=== PATIENT | female | born 1995 | race African-American/Black ===

== ENCOUNTER → 2020-09-09 13:56 | Outpatient (CLI) | payer OTHER, SELFPAY ==
--- NOTE | ~2020-09-09 | CT_ITS ---
EXAMINATION: CT abdomen pelvis wo con DATE: 09/09/2020 14:18 INDICATION: Flank pain and groin pain. Unspecified abdominal pain. Recent urinary tract infection. TECHNIQUE: Computed tomography (CT) of the abdomen was performed without intravenous contrast. Automa deidre exposure control and iterative reconstruction technique were employed. Exam dose: 1097.73 mGy-cm total exam DLP. COMPARISON: None. FINDINGS: Mild focal middle lobe atelectasis. Minimal discoid atelectasis or scarring in the medial r ight lung base. Normal heart size. No pericardial or pleural effusion. The liver, gallbladder, spleen, pancreas, and adrenal glands and kidneys appear normal. No bile duct or pancreatic duct dilatation. No urinary tract calculus or hydroureteronephrosis. Urinary bladder, uterus and adnexal areas are unr emarkable. Normal caliber of the abdominal aorta. No intraperitoneal or retroperitoneal or pelvic mass lesion or adenopathy or ascites. Normal appendix. No bowel obstruction, bowel wall thickening, pneumatosis or intraperitoneal free air . Small fat-containing umbilical hernia. Included skeletal structures are unremarkable. IMPRESSION: No significant abnormality Reviewed, dictated and finalized at [facility]. Reviewed, dictated and finalized at [facility]. IMPRESSION: No significant abnormality
== END ==
PROVIDERS: PCP Family Medicine; Visit Provider Family Medicine
DX: R10.9 Unspecified abdominal pain (principal)
CPT/HCPCS: 74176

== ENCOUNTER → 2021-06-12 10:13 | Outpatient (CLI) | payer OTHER, SELFPAY ==
--- NOTE | ~2021-06-12 | US_ITS ---
EXAMINATION: US pelvic complete w TV DATE: 06/12/2021 10:59 INDICATION: Pelvic and perineal pain TECHNIQUE: Multiple transabdominal and endovaginal sonographic images of the pelvis were obtained. COMPARISON: None. FINDINGS: The uterus measures 9.5 x 4.4 x 5.0 cm. There is a 1.8 x 1.5 cm intramural hypoechoic area anteriorly in the uterine fundus and a similar appearing 1.4 x 1.5 cm area posteriorly in the uterine fundus. The endometrial complex measures 6 mm. The right ovary measures 2.8 x 2.8 x 4.2 cm. The left ovary measures 3.3 x 1.9 x 3.0 cm. There is normal vascular flow in the ovaries. There is no free fl uid in the pelvis. IMPRESSION: 1. No sonographic correlate for the patient's symptoms. 2. Hypoechoic areas of the uterine fundus which may reflect intramural fibroids or possibly adenomyos is. Reviewed, dictated and finalized at [facility]. IMPRESSION: 1. No sonographic correlate for the patient's symptoms. 2. Hypoechoic areas of the uterine fundus which may reflect intramural fibroids or possibly adenomyosis.
== END ==
PROVIDERS: PCP Nurse Practitioner Obstetrics & Gynecology; Visit Provider Family Medicine
DX: R10.2 Pelvic and perineal pain (principal)
CPT/HCPCS: 76830; 76856

== ENCOUNTER 2021-12-23 11:01 | Outpatient (CLI) | payer OTHER, SELFPAY ==
[2021-12-24 08:41] LABS: Kit Draw Collected
== END 2021-12-23 11:02 | disposition home or self-care (01) ==
LOC: ANHGOSHLAB 11:03
PROVIDERS: PCP Family Medicine; Visit Provider Family Medicine
DX: Z00.00 Encounter for general adult medical examination without abnormal findings (principal); I10 Essential (primary) hypertension; E66.9 Obesity, unspecified
CPT/HCPCS: 36415

== ENCOUNTER 2022-02-27 16:56 | Emergency (ER) | payer OTHER, SELFPAY ==
[2022-02-27 17:06] VITALS: BP 124/82; PULSE 98; RESP 20; TEMP 36.7; O2SAT 100
--- NOTE | 2022-02-27 17:12 | ED.NAVMDI ---
HPI - Nausea/Vomiting/Diarrhea General Chief complaint: Nausea/Vomiting/Diarrhea Stated complaint: VOMITING/DIARRHEA/CHILLS/CRAMPING/BELCHING Time Seen by Provider: 02/27/22 17:12 Source: patient Mode of arrival: ambulatory Limitations: no limitations History of Present Illness HPI Narrative: 26-year-old female presents with complaint of abdominal cramping, nausea since February 01. States 1st started after eating anahi [employer] and lasted for 1 day. Since then has had intermittent nausea and abdominal cramping. Eliminated certain foods trying to figure out what may be bothering her stomach. Has appointment with her PCP March 05. Now reports for the last 2 days she has had nausea, vomited twice, worsening of her abdominal cramping, black diarrhea, decrease in appetite. Also reports low-grade fever. No urinary symptoms. No URI symptoms. All Systems reviewed and negative except as noted above. Related Data Home Medications Medication Instructions Recorded Confirmed norethindrone (contraceptive) 0.35 0.35 mg PO DAILY 12/23/21 02/27/22 mg tablet Allergies Allergy/AdvReac Type Severity Reaction Status Date / Time Latex, Natural Rubber Allergy Unknown Rash Verified 12/23/21 10:05 Review of Systems Review of Systems: CONSTITUTIONAL: Reports fever. Denies chills, or sweats. EYES: Denies visual changes, redness, or discharge. ENT: Denies rhinorrhea, congestion, sore throat, or otalgia. CARDIOVASCULAR: Denies chest pain, palpitations, or edema. RESPIRATORY: Denies cough or dyspnea. GASTROINTESTINAL: Reports abdominal pain, nausea, vomiting, and black diarrhea. GENITOURINARY: Denies dysuria or hematuria. SKIN: Denies rash or itching. MUSCULOSKELETAL: Denies back pain, joint pain, or myalgia. NEUROLOGIC: Denies headache, numbness, or weakness. PSYCHIATRIC: Denies anxiety or depression. All other systems reviewed are negative, except as documented in HPI. [facility] Past Medical History Medical History Allergies FH: HTN (hypertension) Fibroids GERD (gastroesophageal reflux disease) Surgical History Surgical History [place] teeth extracted (~2019) Family History Family History Other Uterine cancer Mother Depression Anxiety Diabetes mellitus Hypertension Thyroid disorder Father Anxiety Depression Other Family history of anxiety disorder Family history of hypertension Family history of type 2 diabetes mellitus Family hx-arthritis Social History Social History Social History: Caffeine: coffee,tea,soda 1-2 cups daily Smoking status: Never smoker Alcohol intake: current Alcohol use details: Socially, maybe one glass of wine weekly Substance use: never Substance use type: does not use 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 There is no relevant family history pertinent to the presenting complaint. Exam Narrative: GENERAL: This is a well-nourished, well-developed patient, in no apparent distress. HEAD: normocephalic, atraumatic. EYES: PERRL. Sclera clear/white. Vision is grossly intact. EARS: External ears normal NOSE: External nose normal NECK: Neck supple, non-tender without lymphadenopathy, masses or thyromegaly. CARDIOVASCULAR: Regular rate and rhythm without murmurs, gallops, or rubs. RESPIRATORY: Clear to auscultation. Breath sounds equal bilaterally. No wheezes, rales, or rhonchi. GASTROINTESTINAL: Abdomen soft, nondistended. generalized tenderness. Bowel sounds are active. No hepato-splenomegaly, or palpable masses. No guarding. stool hemoccu
== END 2022-02-27 17:42 | disposition home or self-care (01) ==
PROVIDERS: Emergency Provider Nurse Practitioner Family; PCP Family Medicine
DX: A08.4 Viral intestinal infection, unspecified (principal); K21.9 Gastro-esophageal reflux disease without esophagitis
CPT/HCPCS: 99213; G0463

== ENCOUNTER 2023-05-17 17:37 | Emergency (ER) | payer OTHER, SELFPAY ==
--- NOTE | 2023-05-17 17:42 | ED.GENADULT ---
HPI - General Adult General Chief complaint: Upper Respiratory Infection Stated complaint: Cough/Congestion Source: patient, RN notes reviewed and old records reviewed Mode of arrival: ambulatory Limitations: no limitations History of Present Illness HPI narrative: 19-year-old female presents to [facility] with complaints cough, congestion, or sinus pain this started 1 week ago. Patient taking [id number] medications with no relief. Patient states symptoms have worsened. Related Data Home Medications Medication Instructions Recorded Confirmed norethindrone (contraceptive) 0.35 0.35 mg PO DAILY 12/23/21 05/17/23 mg tablet famotidine 10 mg tablet 10 mg PO DAILY 05/17/23 05/17/23 Allergies Allergy/AdvReac Type Severity Reaction Status Date / Time Latex, Natural Rubber Allergy Unknown Rash Verified 05/17/23 17:44 Review of Systems Constitutional: Constitutional: Reports no additional constitutional complaints, Denies body ache(s), Denies chills, Denies fatigue, Denies fever(s) and Reports headache(s) Eyes: Eyes: Reports no additional eye complaints and Denies blurry vision ENT: Reports system reviewed and no additional complaints, except as documented, Denies vertigo, Denies dizziness, Denies ear discharge, Denies otalgia, Denies facial pain, Denies headache(s), Reports nasal congestion, Reports nasal discharge, Reports sinus pain, Reports sinus pressure and Denies sore throat Cardiovascular: Cardiovascular: Reports no additional cardiovascular complaints, Denies chest pain, Denies chest pain at rest, Denies rapid heart rate and Denies dyspnea Respiratory: Respiratory: Reports no additional respiratory complaints, Reports chest congestion, Reports cough, Denies pain on inspiration, Denies pain with cough and Denies dyspnea Gastrointestinal: Gastrointestinal: Denies abdominal pain, Denies diarrhea, Denies nausea and Denies vomiting Integumentary/Breasts: Skin/Breast: Denies rash Neurologic: Reports system reviewed and no additional complaints, except as documented, Denies vertigo, Denies dizziness and Denies headache(s) Endocrine: Endocrine: Denies fatigue PMFSH Past Medical History Medical History Allergies FH: HTN (hypertension) Fibroids GERD (gastroesophageal reflux disease) Surgical History Surgical History [place] teeth extracted (~2019) Family History Family History Other Uterine cancer Mother Depression Anxiety Diabetes mellitus Hypertension Thyroid disorder Father Anxiety Depression Other Family history of anxiety disorder Family history of hypertension Family history of type 2 diabetes mellitus Family hx-arthritis Social History Social History Social History: Caffeine: coffee,tea,soda 1-2 cups daily Smoking status: Never smoker Alcohol intake: current Alcohol use details: Socially, maybe one glass of wine weekly Substance use: never Substance use type: does not use Lack of Transportation: No Lack of Food: Never True Current Housing: I Have Housing Concerned About Future Housing: No Difficulty Paying Gas/Electric Bills: No Difficulty Paying for Meds: No Currently Unemployed: No Education: Master's Degree or Higher Difficulty w/ Childcare or Family Care: No Living arrangements: with roommate(s) Occupation/Education: occupation 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 There is no relevant family history pertinent to the patient complaint. Exam Const: General: cooperative, healthy a
[2023-05-17 17:43] VITALS: BP 122/85; PULSE 108; RESP 20; TEMP 37; O2SAT 100
== END 2023-05-17 17:56 | disposition home or self-care (01) ==
PROVIDERS: Emergency Provider Registered Nurse; PCP Family Medicine
DX: J32.9 Chronic sinusitis, unspecified (principal); J40 Bronchitis, not specified as acute or chronic; K21.9 Gastro-esophageal reflux disease without esophagitis
CPT/HCPCS: 99213; G0463

== ENCOUNTER 2023-09-04 15:09 | Emergency (ER) | payer OTHER, SELFPAY ==
[2023-09-04 15:18] VITALS: BP 133/61; PULSE 114; RESP 16; TEMP 36.9; O2SAT 100
--- NOTE | 2023-09-04 15:23 | ED.EAR ---
HPI - Ear Problem General Chief complaint: Ear Stated complaint: EARACHE Time Seen by Provider: 09/04/23 15:24 Source: patient, RN notes reviewed and old records reviewed Mode of arrival: ambulatory Limitations: no limitations History of Present Illness HPI Narrative: patient presents today with complaints of bilateral ear pain that has been present for 2 days. Right worse than left. She denies any fever, chills, sweats. She does report some rhinorrhea, states that she does have chronic allergies. She voices no other concerns or complaints at this time. Related Data Home Medications Medication Instructions Recorded Confirmed norethindrone (contraceptive) 0.35 0.35 mg PO DAILY 12/23/21 09/04/23 mg tablet famotidine 10 mg tablet 10 mg PO DAILY 05/17/23 09/04/23 Allergies Allergy/AdvReac Type Severity Reaction Status Date / Time Latex, Natural Rubber AdvReac Mild Rash Verified 09/04/23 15:12 Review of Systems Review of Systems: All systems reviewed & are unremarkable except as noted in HPI and below Constitutional: Constitutional: Reports no additional constitutional complaints ENT: Reports system reviewed and no additional complaints, except as documented Cardiovascular: Cardiovascular: Reports no additional cardiovascular complaints Respiratory: Respiratory: Reports no additional respiratory complaints Gastrointestinal: Gastrointestinal: Reports no additional gastrointestinal complaints [facility] Past Medical History Medical History Allergies FH: HTN (hypertension) Fibroids GERD (gastroesophageal reflux disease) Surgical History Surgical History [place] teeth extracted (~2019) Family History Family History Other Uterine cancer Mother Depression Anxiety Diabetes mellitus Hypertension Thyroid disorder Father Anxiety Depression Other Family history of anxiety disorder Family history of hypertension Family history of type 2 diabetes mellitus Family hx-arthritis Social History Social History Social History: Caffeine: coffee,tea,soda 1-2 cups daily Smoking status: Never smoker Alcohol intake: current Alcohol use details: Socially, maybe one glass of wine weekly Substance use: never Substance use type: does not use Lack of Transportation: No Lack of Food: Never True Current Housing: I Have Housing Concerned About Future Housing: No Difficulty Paying Gas/Electric Bills: No Difficulty Paying for Meds: No Currently Unemployed: No Education: Master's Degree or Higher Difficulty w/ Childcare or Family Care: No Living arrangements: with roommate(s) Occupation/Education: occupation 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 There is no relevant family history pertinent to the patient complaint. Exam Const: General: cooperative, no acute distress, alert and awake Orientation/consciousness: oriented to person, oriented to place and oriented to time HENMT: Head: normal to inspection Ears: unable to visualize TM bilaterally ( Obscured by cerumen) Resp: Effort & Inspection: normal respiratory effort and able to speak in complete sentences Auscultation: clear to auscultation bilaterally, no crackles, no rales, no rhonchi and no wheezes Cardio: Palpation: normal PMI Rate: regular rate Rhythm: regular rhythm Heart sounds: S1 normal heart sound present and S2 normal heart sound present Neuro: General: oriented to person, oriented to place and oriented to time Cranial nerves: Yes CN's II-XII intact bilaterally
== END 2023-09-04 15:42 | disposition home or self-care (01) ==
PROVIDERS: Emergency Provider Nurse Practitioner Family; PCP Family Medicine
DX: H61.23 Impacted cerumen, bilateral (principal); K21.9 Gastro-esophageal reflux disease without esophagitis
CPT/HCPCS: 69209; 99213; A9270; G0463

== ENCOUNTER 2025-02-19 16:00 | Outpatient (CLI) | payer OTHER, SELFPAY ==
--- NOTE | ~2025-02-19 | US_ITS ---
US thyroid INDICATION: Graves' disease TECHNIQUE: Real-time sonographic images of the thyroid gland were obtained. COMPARISON: No prior studies for comparison. FINDINGS: The right thyroid lobe measures 7.6 x 2.4 x 3.2 cm. The left thyroid lobe measures 7.7 x 2.4 x 3 cm. Thyroid echotexture is somewhat heterogeneous although diffusely enlarged. In the isthmus there is a solid slightly hyperechoic wider than tall smoothly marginated mass without echogenic foci measuring 2.4 x 1.5 x 2.3 cm, TR 3 and the left lobe there is a complex mostly solid hypoechoic wider than tall mass measuring 1.8 cm without echogenic foci, TR 4.. Normal vascular flow is present. IMPRESSION: 1. Suspicious masses of both the isthmus and left thyroid lobe which meet sonographic criteria for biopsy. Follow-up ultrasound-guided biopsy recommended. 2: Diffusely enlarged thyroid gland. Reviewed, dictated and finalized at [facility]. TRANSFERRER IMPRESSION: 1. Suspicious masses of both the isthmus and left thyroid lobe which meet sono graphic criteria for biopsy. Follow-up ultrasound-guided biopsy recommended. 2: Diffusely enlarged thyroid gland.
== END 2025-02-19 16:01 | disposition home or self-care (01) ==
LOC: MICIMG 16:02
PROVIDERS: PCP Nurse Practitioner Family; Visit Provider Internal Medicine Endocrinology, Diabetes & Metabolism
DX: E04.1 Nontoxic single thyroid nodule (principal)
CPT/HCPCS: 76536